=== PATIENT | male | born 1970 | race Caucasian/White ===

== ENCOUNTER → 2017-10-09 | Outpatient (CLI) | payer OTHER | LOC: BMCIMAGING 10:46 | PROVIDERS: ATTEND Family Medicine | DX: S82.432A Displaced oblique fracture of shaft of left fibula, initial encounter for closed fracture (principal) ==

== ENCOUNTER → 2017-11-02 | Outpatient (CLI) | payer OTHER | LOC: BMCIMAGING 12:40 | PROVIDERS: ATTEND Podiatrist Foot & Ankle Surgery | DX: S82.822D Torus fracture of lower end of left fibula, subsequent encounter for fracture with routine healing (principal) ==

== ENCOUNTER → 2017-12-02 | Outpatient (CLI) | payer OTHER | LOC: BMCIMAGING 08:08 | PROVIDERS: ATTEND Podiatrist Foot & Ankle Surgery | DX: S82.832D Other fracture of upper and lower end of left fibula, subsequent encounter for closed fracture with routine healing (principal) ==